=== PATIENT | female | born 1955 | race Caucasian/White ===

== ENCOUNTER → 2021-05-24 | Outpatient (CLI) | payer OTHER ==
--- NOTE | 2021-05-24 18:38 | CARDNUC ---
[place] [address] CARDIAC NUCLEAR IMAGING REPORT Name: SOSA FLOWERS Room: [facility]#: [id number] Admission: 05/24/21 Attend Phys: Danielito Gallardo, Discharge: Date of : 53 Date of Service: 05/24/21 1838 Report #: [id number] THIS REPORT FOR: cc: NEVILLE TIAN DEBRA L FNP Liston, Michael J. MD [facility] ~ APPROVED REPORT Study performed: 05/24/2021 09:20:30 Exam: Nuclear Stress Test Indication: Abnormal EKG Patient Location: Out-Patient Stress Tech: edna Stress Nurse: Edna Mosley RN Ht: 5 ft 0 in Wt: 165 lbs BSA: 1.72 m2 BMI: 32.22 Medical History Medical History: HTN, Hyperlipidemia Medications: asa-81, atorvastatin, lisinopril Allergies: nkda Cardiac Risk Factors: Age, Current Smoker, HTN, Hyperlipidemia Exercise History: Indeterminate Stress Test Details Stress Test: Pharmacologic stress testing performed using 0.4 mg of regadenoson per 5 mL given IV over 10 seconds. Reason for pharmacologic stress test: bad knees. HR Resting HR: 78 bpm Max Heart Rate (APMHR): 154 bpm Max HR Achieved: 103 bpm Target HR (85% APMHR): 130 bpm % of APMHR: 66 Recovery HR: 92 bpm BP Resting BP: 128/71 mmHg Max BP: 111/65 mmHg ECG Resting ECG: [place] [address] CARDIAC NUCLEAR IMAGING REPORT Name: FLOWERSSOSA Room: [facility]#: [id number] Admission: 05/24/21 Attend Phys: Danielito Gallardo, Discharge: Date of : 53 Date of Service: 05/24/21 1838 Report #: [id number] Stress ECG: Sinus Tachycardia ST Change: None Arrhythmia: None Recovery ECG: Sinus Rhythm Recovery ST Change: None Recovery Arrhythmia: None Clinical Reason for Termination: Completed protocol The patient tolerated Lexiscan infusion without cardiac symptoms. Stress ECG Conclusion The baseline twelve-lead EKG shows sinus rhythm without significant ST segment or T wave abnormality. EKGs obtained during and post Lexiscan showed sinus rhythm with no significant ST segment or T wave changes when compared to baseline. There were no stress-induced arrhythmias. NM EXAM: Myocardial Perfusion REST/STRESS Resting Data Rest SPECT myocardial perfusion imaging was performed in supine position 30 minutes following the intravenous injection of 9.6 mCi of Tc-99m Sestamibi. Time of rest injection: 0800 The images were gated to evaluate regional wall motion and calculate left ventricular ejection fraction. Administration Route: IV Administration Site: Right AC Pharmacologic Stress Pharmacologic stress test was performed by injecting Regadenoson 0.4 mg IV push followed by the intravenous injection of 35.0 mCi of Tc-99m Sestamibi. Time of stress injection: 929 Administration Route: IV Administration Site: Left AC Heart Rate at time of stress injection: 103 bpm. Gated Stress SPECT was performed 45 minutes after stress injection. The images were gated to evaluate regional wall motion and calculate left ventricular ejection fraction. Prone imaging [place] [address] CARDIAC NUCLEAR IMAGING REPORT Name: FLOWERSSOSA Room: [facility]#: [id number] Admission: 05/24/21 Attend Phys: Danielito Gallardo, Discharge: Date of : 53 Date of Service: 05/24/21 1838 Report #: [id number] Study: Good Artifact: Mild Diaphragmatic artifact Study Data At rest, the left ventricular ejection fraction was 73%.. Post stress, the left ventricular ejection was 81%.. TID = 0.89. Perfusion Perfusion images show a moderate size mild to moderate intensity reversible defect involving the basal to mid inferior wall. No other significant fixed or reversible defects are identified. Wall Motion Global LV systolic function is preserved. There is a region of hypokinesis involving the basal inferior and inferoseptal wall. Nuclear Conclusion ECG Findings: negative for ischemia Clinical Findings: negative for ischemia Nuclear Findings: positive for ischemia Exercise Capacity: not assessed Left Ventricular Function: Preserved Risk Study: moderate Perfusion images suggest ischemia involving the basal portion of the inferior inferoseptal wall. Global LV systolic function is preserved with wall motion abnormality as outlined above. This is a moderate risk study. <Conclusion> The baseline twelve-lead EKG shows sinus rhythm without significant ST segment or T wave abnormality. EKGs obtained during and post Lexiscan showed sinus rhythm with no significant ST segment or T wave changes when compared to baseline. There were no stress-induced arrhythmias. <ELECTRONICALLY SIGNED> By: Greg High MD, [facility] 05/24/211837 37 37 Greg High MD, FACC /INF
== END ==
LOC: M.NUC 05-02 09:14
PROVIDERS: ATTEND Internal Medicine
DX: R94.31 Abnormal electrocardiogram [ECG] [EKG] (principal)

== ENCOUNTER 2021-06-17 09:32 | Observation (INO) | payer OTHER ==
[2021-06-17] VITALS (14 sets, daily range): BP systolic 105–138; BP diastolic 65–86
[~2021-06-17] VITALS: Ht 152.4 cm; Wt 70.3 kg
[~2021-06-17 09:32] MED LIST: ADULT LOW DOSE81 MG PO; BENZONATATE200 MG PO; FOSAMAX 70 MG T70 MG PO; IPRAT-ALBUT 0.5-3 ML INH; LIPITOR80 MG PO; LISINOPRIL10 MG PO; MELOXICAM15 MG PO; OMEPRAZOLE40 MG PO; SKELAXIN 800 M800 M1 PO; TRAMADOL 50 MG50 MG PO; VENTOLIN HFA 1818 GM INH; VITAMIN D31250 MC1 PO
[2021-06-17 09:53] LABS: HEMATOCRIT 44.7 % (37.0-47.0); HEMOGLOBIN 14.9 gm/dL (12.0-15.0); MCH 27.9 pg (26.0-34.0); MCHC 33.2 g/dL (28.0-37.0); MCV 83.8 fL (80.0-100.0); MPV 7.6 fl. (7.2-11.1); RBC 5.34 mil/uL (4.20-5.00); RDW-CV 16.2 % (10.5-14.5)
[2021-06-17 10:02] LABS: CALCIUM 9.4 mg/dL (8.5-10.1); CREATININE 0.9 mg/dL (0.6-1.3); POTASSIUM 3.8 mmol/L (3.5-5.1)
[2021-06-17 10:07] LABS: TOTAL BILIRUBIN 0.5 mg/dL (<0.1-1.0); TOTAL PROTEIN 7.9 g/dL (6.4-8.2)
[2021-06-17 10:17] LABS: APTT 23.4 Seconds (25.0-31.3); PROTIME 10.3 Seconds (9.20-11.50)
[2021-06-17 10:22] LABS: CHOLESTEROL 232 mg/dL (<200); HDL CHOLESTEROL 43 mg/dL (>40); LDL CHOLESTEROL 155 mg/dL (<100); TC:HDL 5.4 Ratio (Not establshd); TRIGLYCERIDE 170 mg/dL (<150); VLDL 34 mg/dL (<40)
[2021-06-17 10:23] LABS: SERUM ASSESSMENT Clear
--- NOTE | 2021-06-17 16:41 | CARD ---
[address] [address] CARDIAC CATH REPORT Name: SOSA FLOWERS Room: [address] M.Timmy#: [id number] Admission: 06/17/21 Attend Phys: Byron Aguilar MD, Discharge: Date of : 53 Report #: [id number] THIS REPORT FOR: cc: NEVILLE TIAN DEBRA L FNP Holkins, John M. MD [facility] ~ APPROVED REPORT Study performed: 06/17/2021 11:43:50 Patient Details Patient Status: Out-Patient Room #: The patient is a 65 year-old female Event Personnel Byron Aguilar Pastry Baker, Roma Morton RN RN, Ekaterina Samuel RTR Scrub, Cheikh Kennedy RTR Monitor Procedures Performed Left Heart Cath w/or w/o Coronaries [id number] [facility] Revasc Chronic Ttl Occl Single RCA C9607 CTOREVSING Hemostasis w/ Mynx Indication Unstable angina Risk Factors Hypercholesterolemia, Hypertension Admission/Lab Medications/Medications given during procedure Fentanyl IV 25 mcg, Midazolam (Versed) IV 2 mg, Lidocaine Subcut 20 ml, Angiomax IV 10.5 ml, Angiomax IV 24.65 ml per hr, Angiomax IV 5 ml, Nitroglycerin IC 150 mcg, Angiomax IV 4 ml, Midazolam (Versed) IV 1 mg, Effient PO 60 mg, Aspirin PO 162 mg Procedure Narrative The patient was brought electively to the Cardiac Catheterization Laboratory and was prepped and draped in a sterile manner. The right femoral was infiltrated with 2% Lidocaine subcutaneous anesthesia. IV conscious sedation was used throughout procedure with appropriate monitoring and was performed in the presence of a registered nurse who was an independent trained observer other than the physician performing the procedure. A Worthington 6 FR sheath was inserted into the right femoral artery. Coronary [place] [address] CARDIAC CATH REPORT Name: SOSA FLOWERS Room: [address] M.R.#: [id number] Admission: 06/17/21 Attend Phys: Byron gAuilar MD, Discharge: Date of : 53 Report #: [id number] coronary diagnostic catheters. The right coronary system was accessed and visualized with a Diagnostic JR4 6Fr catheter. The left coronary system was accessed and visualized with a Diagnostic JL4 6Fr catheter. The left ventricle was accessed and visualized with a Diagnostic Pigtail 6Fr catheter. Left ventricular/Aortic Valve gradient assessed via catheter pullback. Pre-demployment femoral angiogram was performed . Closure device was deployed with a 6 Fr Mynx. The patient tolerated the procedure well and there were no complications associated with the procedure. There was no hematoma. Intraoperative Conscious Sedation Sedation start time: 1201 Case end Time: 1315 Fentanyl 50 mcg Versed 3 mg Fluoro Time: 22.2 minutes Dose: DAP 038707 cGycm2 1878.16 mGy Contrast Type and Amount: Omnipaque 380 ml Coronary Angiography The patient's coronary anatomy is right dominant. Diagnostic Cath Left Main 0% narrowing LAD 40% tubular proximal and 50% tubular mid LAD stenosis Circumflex 30% proximal circumflex narrowing with 50% mid vessel stenosis; there were faint collaterals from the circumflex to the distal right coronary artery Right Coronary Dominant vessel with 100% occlusion just distal to the acute margin with recanalization to fill the distal right coronary artery with CARSON I flow Left Ventriculography The left ventricle is normal in size with normal contractility. The left ventricular ejection fraction is estimated to be 65%. Left ventricular wall motion abnormalities are not present. There is no mitral insufficiency. Hemodynamics The aortic pressure is 112/63 mmHg with a mean of 84 mmHg. The left ventricular pressure is 111/-10 mmHg with a mean of mmHg. The left ventricular end diastolic pressure is 3 mmHg. There was no gradient across the aortic [place] [address] CARDIAC CATH REPORT Name: SOSA FLOWERS Room: [address] M.R.#: [id number] Admission: 06/17/21 Attend Phys: Byron Aguilar MD, Discharge: Date of : 53 Report #: [id number] PCI Technique Lesion Anticoagulation was achieved with Angiomax. Percutaneous coronary intervention was performed on the distal right coronary artery. The lesion stenosis prior to intervention was 100% with CARSON 1 flow. A 6F JR 4.0 Guide Catheter was used to engage the ostium. A IG: BMW 300cm Interventional Guidewire was used to cross the lesion. BALLOON DILATION A Balloon catheter Mini Trek RX 1.2X8 was inserted and inflated up to 12.00atm for 11seconds. Additional Inflation: 12.00atm for 7seconds. Additional Inflation: 18.00atm for 10seconds. A Balloon Catheter Mini Trek RX 2.0X12 was inserted and inflated up to 8.00 gely for 10 seconds. Additional Inflation: 10.00 gely for 9 seconds. Additional Inflation: 10.00 gely for 8 seconds. STENT DEPLOYMENT A drug-eluting stent Holden RX Stent 2.0X26mm was inserted and inflated up to 10.00atm for 12seconds. Additional Inflation: 11.00atm for 14seconds. A Drug-eluting stent Holden RX Stent 2.0X8mm was inserted and inflated up to 8.00 gely for 16 seconds. Additional Inflation: 10.00 gely for 9 seconds. Final angiography reveals 10 % stenosis with CARSON 3 flow. COMMENTS The 100% HYDRAULIC PRESS IN OPERATOR of the right coronary artery beyond the acute margin was traversed, utilizing a finecross microcatheter and ultimately traversing one of the micro channels with a soft-tipped wire. I was then able to pass a 1.2 x 8 mm trek balloon subsequently 2.0 x 12 trek with subsequent stent deployment surrounding the acute margin. Conclusion 1. Significant multivessel coronary artery disease characterized by the following: A 40% tubular proximal with 50% tubular mid LAD stenosis B 30% proximal with 50% mid circumflex stenosis C moderate size but dominant right coronary artery with 100% occlusion just distal to the acute margin with recanalization to fill the distal vessel with CARSON I flow; there [place] [address] CARDIAC CATH REPORT Name: SOSA FLOWERS Room: [address] Deonna Montelongo#: [id number] Admission: 06/17/21 Attend Phys: Byron Aguilar MD, Discharge: Date of : 53 Report #: [id number] the circumflex to the distal right coronary artery 2. Normal left ventricular systolic function, estimate ejection fraction being 65% 3 normal left-sided hemodynamic study 4. Successful PCI with recanalization of the HYDRAULIC PRESS IN OPERATOR of the distal right coronary artery as outlined in the technique section with the 10% residual narrowing following stent deployment and CARSON-3 flow to the distal vessel Recommendations Cardiac Risk Reduction Program Aggressive Medical Therapy Medications Administered Aspirin (any) Prasugrel Diagnostic Cath Approved by: Byron Aguilar MD Date/Time: 06/17/2021 16:40:13 <ELECTRONICALLY SIGNED> By: Byron Aguilar MD, [facility] 06/17/211640 40 40Byron Aguilar MD, FACC /INF
--- NOTE | 2021-06-17 17:09 | EKG ---
[place] [address] ELECTROCARDIOGRAM REPORT Name: SUMIT FLOWERSTHIJusten Leija Room: [address] M.R.#: [id number] Admission: 06/17/21 Attend Phys: Heladio De Discharge: Date of : 53 Date of Service: 06/17/21 1019 Report #: [id number] THIS REPORT FOR: //name// [facility] Test Date: 2021-06-17 Test Time: 10:19:41 Pat Name: SOSA FLOWERS Department: Room: [facility] Gender: F Force Adjustment Supervisor: : 1955 Requested By: Byron Aguilar Order Number: [id number] Iris MD: Byron Aguilar Measurements Intervals [place] Rate: 95 P: 72 TN: 144 QRS: -76 QRSD: 102 T: 40 QT: 359 QTc: 452 Interpretive Statements Sinus rhythm Abnormal R-wave progression, late transition Inferior infarct, old No previous ECG available for comparison Electronically Signed On 06-17-2021 17:09:29 CDT by Byron Aguilar [email or web address] <ELECTRONICALLY SIGNED> By: Byron Aguilar MD, FACC 06/17/21 1709 1019 1019 Byron Aguilar MD, [facility] /EPI
--- NOTE | 2021-06-17 17:13 | EKG ---
[place] [address] ELECTROCARDIOGRAM REPORT Name: SUMIT FLOWERSTHIA Heladio Room: [address] M.R.#: [id number] Admission: 06/17/21 Attend Phys: Heladio De Discharge: Date of : 53 Date of Service: 06/17/21 1456 Report #: [id number] THIS REPORT FOR: //name// [facility] Test Date: 2021-06-17 Test Time: 14:56:02 Pat Name: SOSA FLOWERS Department: Room: [facility] Gender: F Explosives Detonator: : 1955 Requested By: Byron Aguilar Order Number: [id number] Reading MD: Byron Aguilar Measurements Intervals [place] Rate: 93 P: 81 NV: 142 QRS: -78 QRSD: 100 T: 64 QT: 373 QTc: 464 Interpretive Statements Sinus rhythm Abnormal inferior Q waves Compared to ECG 06/17/2021 10:19:41 Inferior Q waves persist suggesting inferior scar Electronically Signed On 06-17-2021 17:12:50 CDT by Byron Aguilar [email or web address] <ELECTRONICALLY SIGNED> By: Byron Aguilar MD, [facility] 06/17/21 1712 1456 1456 Byron Aguilar MD, [facility] /EPI
[2021-06-18 00:45] VITALS: BP 105/68
[2021-06-18 05:01] VITALS: BP 128/76
[2021-06-18 05:08] LABS: HEMATOCRIT 37.6 % (37.0-47.0); MCH 27.8 pg (26.0-34.0); MCHC 33.5 g/dL (28.0-37.0); MPV 7.5 fl. (7.2-11.1); RBC 4.53 mil/uL (4.20-5.00); RDW-CV 15.8 % (10.5-14.5); WBC 9.6 thou/uL (4.0-11.0)
[2021-06-18 05:12] LABS: HEMOGLOBIN 12.6 gm/dL (12.0-15.0)
[2021-06-18 05:35] LABS: ALBUMIN 3.1 g/dL (3.4-5.0); CALCIUM 8.4 mg/dL (8.5-10.1); CREATININE 0.9 mg/dL (0.6-1.3); POTASSIUM 3.3 mmol/L (3.5-5.1); TOTAL BILIRUBIN 0.7 mg/dL (<0.1-1.0); TOTAL PROTEIN 6.6 g/dL (6.4-8.2)
[2021-06-18 07:25] VITALS: BP 135/67
--- NOTE | 2021-06-18 08:45 | NUR ---
PT SLEPT MOST OF SHIFT. ASSESSMENT DOCUMENTED. MEDS GIVEN PER E-MAR. IV PATENT. NO REPORTS OF PAIN. CATH SITE REMAINED SOFT WITH NO BRUISING. PT ABLE TO MAKE NEEDS KNOWN. WILL CONTINUE WITH PLAN OF CARE.
[2021-06-18] MEDS ORDERED: EFFIENT10 MG PO (10:25)
[2021-06-18 11:04] VITALS: BP 135/67
--- NOTE | 2021-06-18 12:31 | NUR ---
PT GIVEN DISCHARGE INFORMATION, CARE NOTES, AND PRESCRIPTIONS SENT TO PHARMACY. IV REMOVED. PT BELONGINGS GATHERED. PT LEFT VIA WHEELCHAIR WITH NURSING STAFF TO HOME.
[2021-06-18 13:08] VITALS: BP 100/44
--- NOTE | 2021-06-18 15:59 | D ---
[address] [address] DISCHARGE SUMMARY Name: SOSA FLOWERS Room: [address] Deonna Montelongo#: [id number] Admission: 06/17/21 Attend Phys: Byron Aguilar MD, Discharge: 06/18/21 Date of : 53 Report #: [id number] THIS REPORT FOR: cc: NEVILLE TIAN DEBRA L FNP Holkins, John M. MD [facility] ~ DATE OF DISCHARGE: 06/18/2021 FINAL DISCHARGE DIAGNOSES: 1. Unstable angina. 2. Coronary artery disease. 3. Hypertension. 4. Hyperlipidemia. 5. Tobacco abuse. 6. Chronic obstructive pulmonary disease. PROCEDURES: 1. 06/17/2021 -- left heart catheterization, left ventriculography, selective coronary arteriography, and percutaneous coronary intervention with recanalization of a chronic total occlusion of the right coronary artery just beyond the acute margin. HOSPITAL COURSE: The patient is a 65-year-old female with hypertension, hypercholesterolemia and tobacco abuse. Recently, she has noted chest discomfort and easy fatigability with activity. In this context, and with known risk factor profile, cardiac catheterization was recommended. This was undertaken on 06/17/2021 and revealed modest disease of the LAD and circumflex with 100% chronic total occlusion of the right coronary artery just beyond the acute margin with recanalization to fill the distal right with CARSON 1 flow with faint collateral from the circumflex to the distal right. I was able to recanalize the right coronary artery, deploying 2 drug-eluting stents after recanalization with 10% residual narrowing and CARSON 3 flow to the distal vessel. Troponin high sensitive did not rise out of the reference range post-procedurally. She ambulated in the hallways without difficulty with good hemostasis at the right femoral site of catheterization. Laboratory post-procedurally revealed normal renal function and normal troponin I. Hemoglobin fell slightly to 12.6 g%. DISCHARGE MEDICATIONS: She was discharged home on the following medications: 1. Inhaled albuterol 2 puffs as needed. 2. Prasugrel or Effient 10 mg daily. 3. Fosamax 70 mg weekly. 4. Aspirin 81 mg daily. 5. Atorvastatin [place] [address] DISCHARGE SUMMARY Name: SOSA FLOWERS Room: [address] Reginald#: [id number] Admission: 06/17/21 Attend Phys: Byron Aguilar MD, Discharge: 06/18/21 Date of : 53 Report #: [id number] 6. Benzonatate 200 mg t.i.d. p.r.n. cough. 7. Vitamin D3 1250 mcg daily. 8. Ipratropium sulfate inhaled as needed. 9. Lisinopril 10 mg daily. 10. Meloxicam 15 mg daily. 11. Skelaxin 800 mg daily. 12. Omeprazole 40 mg daily. 13. Tramadol 50 mg q. 6 hours p.r.n. pain. The patient is scheduled to return to see Dr. Gallardo on 07/18 at [facility] at 1120 hours. Therefore, the patient is discharged home in stable condition on the aforementioned medications with followup as described above. <ELECTRONICALLY SIGNED> By: Byron Aguilar MD, FACC 06/18/21 1559 0932 1125Josanthosh Aguilar MD, FACC /nt
== END 2021-06-18 13:42 | disposition home or self-care (01) ==
LOC: M.CL 09:32 → M.TBA-CV 13:40 → M.2W 13:40
PROVIDERS: ADMIT Internal Medicine; ATTEND Internal Medicine
DX: I25.110 Atherosclerotic heart disease of native coronary artery with unstable angina pectoris (principal); Z20.822 Contact with and (suspected) exposure to COVID-19; I10 Essential (primary) hypertension; E78.5 Hyperlipidemia, unspecified; J44.9 Chronic obstructive pulmonary disease, unspecified; F17.210 Nicotine dependence, cigarettes, uncomplicated; Z79.899 Other long term (current) drug therapy; Z79.82 Long term (current) use of aspirin